=== PATIENT | female | born 1980 | race American Indian/Alaskan Native ===

== ENCOUNTER 2017-06-17 12:32 | Emergency (ER) | payer SELFPAY ==
[2017-06-17 13:32] LABS: Basophils % (Auto) 1.1 % (0.0-1.8); Hematocrit 35.9 % (30.3-42.9); Hemoglobin 11.5 gm/dl (10.1-14.3); Mean Corpuscular HGB Conc 32 % (30-34); Mean Corpuscular Volume 80 fl (79-97); Platelet Count 263 K/mm3 (140-440); Red Blood Count 4.51 M/mm3 (3.65-5.03); Red Cell Distribution Width 14.9 % (13.2-15.2); White Blood Count 5.5 K/mm3 (4.5-11.0)
[2017-06-17 13:35] LABS: Mean Corpuscular Hemoglobin 26 pg (28-32)
--- NOTE | 2017-06-17 13:38 | Emergency Department Report ---
Chief Complaint: Abdominal Pain Stated Complaint: STOMACH AND SIDE PAIN Time Seen by Provider: 06/17/17 13:36 - HPI History of Present Illness: Patient here complaining of abdominal pain to her upper quadrant especially to epigastric area and she says she has nausea and vomited times once last night. She doesn't have a primary care physician and she says she has a history of gallstones and they have told her before that she might have to have surgery to remove her gallbladder. She said her pain is 10 out of 10 and it feels like her stomach is full and pressure. Denies any diarrhea. Denies any urinary burning frequency or urgency. Patient denies any fever or chills. Pain is located to her upper quadrants. - ROS Review of Systems: All systems are negative unless stated in HPI above - Exam Vital Signs: Vital Signs 06/17/17 12:45 Temperature 98.9 F Pulse Rate 69 Respiratory 18 Rate Blood Pressure 147/94 O2 Sat by Pulse 100 Oximetry Physical Exam: Gen.: This is a 36-year-old female well-nourished well-developed in no acute distress. Abdomen: Tender to palpate to upper quadrants of abdomen, no guarding or rebound. Normal bowel sounds. No CVA tenderness. MSE screening note: Focused history and physical exam performed. Due to findings the following was ordered:[facility] ED Medical Decision Making - Lab Data Result diagrams: 06/17/17 12:56 06/17/17 12:56 - Medical Decision Making MDM: Patient screened by provider in triage area. Appropriate protocol initiated and patient to be seen in main ED by Dr. SALAS Disposition for MSE Condition: Stable Instructions: Abdominal Pain (ED)
[2017-06-17 13:46] LABS: Alanine Aminotransferase 13 units/L (7-56); Albumin 4.1 g/dL (3.9-5); Albumin/Globulin Ratio 1.2 %; Alkaline Phosphatase 64 units/L (35-129); Anion Gap 17 mmol/L; Blood Urea Nitrogen 7 mg/dL (7-17); Calcium 8.9 mg/dL (8.4-10.2); Carbon Dioxide 25 mmol/L (22-30); Chloride 99.8 mmol/L (98-107); Glucose 92 mg/dL (65-100); Lipase 11 units/L (13-60); Potassium 3.8 mmol/L (3.6-5.0); Sodium 138 mmol/L (137-145); Total Protein 7.4 g/dL (6.3-8.2)
[2017-06-17 13:50] LABS: Bacteria,Urine 4+ /HPF (Negative); Bilirubin,Urine NEG (Negative); Blood,Urine NEG (Negative); Ketones,Urine NEG (Negative); Leukocyte Esterase,Urine MOD (Negative); Mucus,Urine 3+ /HPF; Nitrite,Urine NEG (Negative); Urobilinogen,Urine < 2.0 mg/dL (<2.0)
--- NOTE | 2017-06-17 15:49 | Ultrasound Report ---
ULTRASOUND ABDOMEN COMPLETE: Technique: Transabdominal ultrasound with color Doppler interrogation. History: Upper abdominal pain. Findings: The liver parenchyma is slightly echogenic consistent with mild fatty infiltration or other nonspecific parenchymal disease. The gallbladder is packed with numerous shadowing gallstones. The CBD measures 4 mm. No pericholecystic fluid is appreciated. The visualized portions of the pancreas including the head and proximal body are within normal limits. The kidneys demonstrate no hydronephrosis or mass. Cortical thickness and echogenicity are within normal limits bilaterally. The spleen and aorta are within normal limits. No aneurysmal dilatation is noted. No ascites. The bladder is unremarkable. IMPRESSION: Cholelithiasis. No convincing findings of acute cholecystitis. Hepatic steatosis.
[2017-06-17] MEDS ORDERED: ULTRAM PO ONE (19:00)
[2017-06-17] MEDS ORDERED: TORADOL IM ONE (19:00)
[2017-06-17] MEDS ORDERED: ALUM-MAG HYDROX-SIMETH 200-200-20MG/5ML PO ONE (19:00)
[2017-06-17] MEDS ORDERED: LIDOCAINE VISCOUS 2% PO ONE (19:00)
[2017-06-17] MEDS ORDERED: ZOFRAN ODT PO ONE (19:01)
--- NOTE | 2017-06-17 19:47 | Emergency Department Report ---
ED Abdominal Pain HPI - General Chief Complaint: Abdominal Pain Stated Complaint: STOMACH AND SIDE PAIN Time Seen by Provider: 06/17/17 13:36 Source: patient Mode of arrival: Ambulatory Limitations: No Limitations - History of Present Illness Initial Comments: 36-year-old female with a past medical history of gallstones presented to the hospital complaining of ongoing abdominal pain. Patient states she has had the pain for "a long time". It appears to be worsening interfering with her sleep. Exacerbated by movement and palpation. Pain is in epigastric, right upper quadrant, left upper quadrant area and radiates to the bilateral flanks. Rated 10/10 intensity. Described as aching and like there is a "knot". Patient had one episode of vomiting last night. No reports of fever, melena, hematochezia, hematemesis, dysuria, hematuria, diarrhea, or melena. Patient has no history of gallstones and has not followed up with the surgeon due to lack of insurance coverage. - Related Data Previous Rx's Medication Instructions Recorded Last Taken Type Acetaminophen/Codeine [Tylenol #3] 1 tab PO Q6H PRN #20 tab 09/18/15 Unknown Rx Ciprofloxacin HCl [Ciprofloxacin 500 mg PO Q12H #14 tab 09/18/15 Unknown Rx TAB] Omeprazole [PriLOSEC] 20 mg PO QDAY #20 capsule. 09/18/15 Unknown Rx metroNIDAZOLE [Flagyl] 500 mg PO Q12HR #14 tab 09/18/15 Unknown Rx Famotidine [Pepcid] 20 mg PO BID #60 tablet 08/16/16 Unknown Rx HYDROcodone/APAP 5-325 [Uneeda 1 each PO Q6HR PRN #20 tablet 06/17/17 Unknown Rx 5/325] Omeprazole Magnesium [PriLOSEC Otc] 20 mg PO QDAY #30 tablet. 06/17/17 Unknown Rx Ondansetron [Zofran Odt] 4 mg PO Q8HR PRN #20 tab.rapdis 06/17/17 Unknown Rx Allergies Allergy/AdvReac Type Severity Reaction Status Date / Time No Known Allergies Allergy Unverified 09/18/15 12:32 ED Review of Systems ROS: Stated complaint: STOMACH AND SIDE PAIN Other details as noted in HPI Comment: All other systems reviewed and negative Other: Constitutional: No fevers chills or weight loss Eyes: No eye pain visual changes or discharge ENT: No ear pain or throat pain Neck: Denies pain Respiratory: Denies cough wheezing shortness of breath Cardiovascular: Denies chest pain, palpitations, syncope GI: As per HPI : Denies dysuria Musculoskeletal: Denies back pain Skin: Denies rash, lesions, erythema Neurologic: Denies headache, numbness, weakness Psychiatric: Denies suicidal ideation, hallucinations Hematological/lymphatic: Denies easy bruising, lymphadenopathy ED Past Medical Hx - Past Medical History Previous Medical History?: No - Surgical History Past Surgical History?: Yes Additional Surgical History: c sect, r. ankle, hernia - Social History Smoking Status: Never Smoker Substance Use Type: Alcohol - Medications Home Medications: Home Medications Medication Instructions Recorded Confirmed Last Taken Type Acetaminophen/Codeine [Tylenol #3] 1 tab PO Q6H PRN #20 tab 09/18/15 Unknown Rx Ciprofloxacin HCl [Ciprofloxacin 500 mg PO Q12H #14 tab 09/18/15 Unknown Rx TAB] Omeprazole [PriLOSEC] 20 mg PO QDAY #20 capsule. 09/18/15 Unknown Rx metroNIDAZOLE [Flagyl] 500 mg PO Q12HR #14 tab 09/18/15 Unknown Rx Famotidine [Pepcid] 20 mg PO BID #60 tablet 08/16/16 Unknown Rx HYDROcodone/APAP 5-325 [Uneeda 1 each PO Q6HR PRN #20 tablet 06/17/17 Unknown Rx 5/325] Omeprazole Magnesium [PriLOSEC Otc] 20 mg PO QDAY #30 tablet. 06/17/17 Unknown Rx Ondansetron [Zofran Odt] 4 mg PO Q8HR PRN #20 tab.rapdis 06/17/17 Unknown Rx ED Physical Exam - General Limitations: No Limitations - Other Other exam information: General: No limitations, patient is alert in no acute distress Head exam: Atraumatic, normocephalic Eyes exam: Normal appearance, pupils equal reactive to light, extraocular movements intact ENT: Moist mucous membrane, normal oropharynx Neck exam: Normal inspection, full range of motion, no meningismus nontender Respiratory exam: Clear to auscultation bilateral, no wheezes, rales, crackles Cardiovascular: Normal rate and rhythm, normal heart sounds Abdomen: Soft, nondistended, right upper quadrant, epigastric, left upper quadrant pain without rebound or guarding. Normal bowel sounds Extremity: Full range of motion normal inspection no deformity Back: Normal Inspection, full range of motion, no tenderness Neurologic: Alert, oriented x3, cranial nerves intact, no motor or sensory deficit Psychiatric: normal affect, normal mood Skin: Warm, dry, intact ED Course Vital Signs 06/17/17 06/17/17 12:45 18:44 Temperature 98.9 F 98.2 F Pulse Rate 69 82 Respiratory 18 16 Rate Blood Pressure 147/94 Blood Pressure 147/90 [Left] O2 Sat by Pulse 100 98 Oximetry - Reevaluation(s) Reevaluation #1: 06/17/17 19:43 Patient given tramadol, Toradol, and GI cocktail with Maalox and viscous lidocaine ED Medical Decision Making - Lab Data Result diagrams: 06/17/17 12:56 06/17/17 12:56 Lab Results 06/17/17 06/17/17 06/17/17 Range/Units 12:56 12:56 13:14 WBC 5.5 (4.5-11.0) K/mm3 RBC 4.51 (3.65-5.03) M/mm3 Hgb 11.5 (10.1-14.3) gm/dl Hct 35.9 (30.3-42.9) % MCV 80 (79-97) fl MCH 26 L (28-32) pg MCHC 32 (30-34) % RDW 14.9 (13.2-15.2) % Plt Count 263 (140-440) K/mm3 Lymph % (Auto) 46.6 H (13.4-35.0) % [place] % (Auto) 9.9 H (0.0-7.3) % Eos % (Auto) 2.0 (0.0-4.3) % Baso % (Auto) 1.1 (0.0-1.8) % Lymph # 2.6 (1.2-5.4) K/mm3 [place] # 0.5 (0.0-0.8) K/mm3 Eos # 0.1 (0.0-0.4) K/mm3 Baso # 0.1 (0.0-0.1) K/mm3 Seg Neutrophils % 40.4 (40.0-70.0) % Seg Neutrophils # 2.2 (1.8-7.7) K/mm3 Sodium 138 (137-145) mmol/L Potassium 3.8 (3.6-5.0) mmol/L Chloride 99.8 (98-107) mmol/L Carbon Dioxide 25 (22-30) mmol/L Anion Gap 17 mmol/L BUN 7 (7-17) mg/dL Creatinine 0.5 L (0.7-1.2) mg/dL Estimated GFR > 60 ml/min BUN/Creatinine Ratio 14.00 % Glucose 92 (65-100) mg/dL Calcium 8.9 (8.4-10.2) mg/dL Total Bilirubin 0.40 (0.1-1.2) mg/dL AST 15 (5-40) units/L ALT 13 (7-56) units/L Alkaline Phosphatase 64 (35-129) units/L Total Protein 7.4 (6.3-8.2) g/dL Albumin 4.1 (3.9-5) g/dL Albumin/Globulin Ratio 1.2 % Lipase 11 L (13-60) units/L Urine Color Yellow (Yellow) Urine Turbidity Clear (Clear) Urine pH 5.0 (5.0-7.0) Ur Specific [place] 1.025 (1.003-1.030) Urine Protein 100 mg/dl (Negative) mg/dL Urine Glucose (UA) Neg (Negative) mg/dL Urine Ketones Neg (Negative) mg/dL Urine Blood Neg (Negative) Urine Nitrite Neg (Negative) Ur Reducing Substances Not Reportable Urine Bilirubin Neg (Negative) Urine Ictotest Not Reportable Urine Urobilinogen < 2.0 (<2.0) mg/dL Ur Leukocyte Esterase Mod (Negative) Urine WBC (Auto) 6.0 (0.0-6.0) /HPF Urine RBC (Auto) 12.0 (0.0-6.0) /HPF U Epithel Cells (Auto) 11.0 (0-13.0) /HPF Urine Bacteria (Auto) 4+ (Negative) /HPF Urine Mucus 3+ /HPF Urine HCG, Qual (Negative) 06/17/17 Range/Units Unknown WBC (4.5-11.0) K/mm3 RBC (3.65-5.03) M/mm3 Hgb (10.1-14.3) gm/dl Hct (30.3-42.9) % MCV (79-97) fl MCH (28-32) pg MCHC (30-34) % RDW (13.2-15.2) % Plt Count (140-440) K/mm3 Lymph % (Auto) (13.4-35.0) % [place] % (Auto) (0.0-7.3) % Eos % (Auto) (0.0-4.3) % Baso % (Auto) (0.0-1.8) % Lymph # (1.2-5.4) K/mm3 [place] # (0.0-0.8) K/mm3 Eos # (0.0-0.4) K/mm3 Baso # (0.0-0.1) K/mm3 Seg Neutrophils % (40.0-70.0) % Seg Neutrophils # (1.8-7.7) K/mm3 Sodium (137-145) mmol/L Potassium (3.6-5.0) mmol/L Chloride (98-107) mmol/L Carbon Dioxide (22-30) mmol/L Anion Gap mmol/L BUN (7-17) mg/dL Creatinine (0.7-1.2) mg/dL Estimated GFR ml/min BUN/Creatinine Ratio % Glucose (65-100) mg/dL Calcium (8.4-10.2) mg/dL Total Bilirubin (0.1-1.2) mg/dL AST (5-40) units/L ALT (7-56) units/L Alkaline Phosphatase (35-129) units/L Total Protein (6.3-8.2) g/dL Albumin (3.9-5) g/dL Albumin/Globulin Ratio % Lipase (13-60) units/L Urine Color (Yellow) Urine Turbidity (Clear) Urine pH (5.0-7.0) Ur Specific [place] (1.003-1.030) Urine Protein (Negative) mg/dL Urine Glucose (UA) (Negative) mg/dL Urine Ketones (Negative) mg/dL Urine Blood (Negative) Urine Nitrite (Negative) Ur Reducing Substances Urine Bilirubin (Negative) Urine Ictotest Urine Urobilinogen (<2.0) mg/dL Ur Leukocyte Esterase (Negative) Urine WBC (Auto) (0.0-6.0) /HPF Urine RBC (Auto) (0.0-6.0) /HPF U Epithel Cells (Auto) (0-13.0) /HPF Urine Bacteria (Auto) (Negative) /HPF Urine Mucus /HPF Urine HCG, Qual Negative (Negative) - Radiology Data Radiology results: report reviewed (abdominal ultrasound: Gallstones or cholecystitis. Hepatic steatosis) - Medical Decision Making Discharge patient home with pain medication and outpatient follow-up with surgeon and GI for further evaluation and treatment of chronic upper abdominal pain With associated cholelithiasis - Differential Diagnosis PUD, gastritis, biliary colic, UTI, , renal colic Critical Care Time: No Critical care attestation.: If time is entered above; I have spent that time in minutes in the direct care of this critically ill patient, excluding procedure time. ED Disposition Clinical Impression: Cholelithiasis Disposition: TO HOME OR SELFCARE Is pt being admited?: No Does the pt Need Aspirin: No Condition: Stable Instructions: Biliary Colic (ED) Additional Instructions: Take the medication as prescribed. Return if symptoms worsen. Prescriptions: HYDROcodone/APAP 5-325 [Uneeda 5/325] 1 each PO Q6HR PRN #20 tablet PRN Reason: Pain Omeprazole Magnesium [PriLOSEC Otc] 20 mg PO QDAY #30 tablet. Ondansetron [Zofran Odt] 4 mg PO Q8HR PRN #20 tab.rapdis PRN Reason: Nausea And Vomiting Referrals: JUAN NEWSOME DO [Staff Physician] - 3-5 Days MAGDI MICHAEL MD [Staff Physician] - 3-5 Days [facility] [Provider Group] - 3-5 Days Time of Disposition: 20:08
[2017-06-17 20:26] VITALS: BP 146/93
== END 2017-06-17 20:25 | disposition home or self-care (01) ==
LOC: ED 12:32
DX: K80.20 Calculus of gallbladder without cholecystitis without obstruction (principal)
CPT/HCPCS: 36415; 76700; 80053; 81001; 81025; 83690; 85025; 96372; 99284; J1885; Q0162

== ENCOUNTER 2019-01-10 15:45 | Emergency (ER) | payer OTHER ==
[2019-01-10] MEDS ORDERED: TORADOL PO ONE (16:24)
[2019-01-10] MEDS ORDERED: BENADRYL PO ONE (16:25)
[2019-01-10] MEDS ORDERED: REGLAN PO ONE (16:25)
--- NOTE | 2019-01-10 16:25 | Emergency Department Report ---
Chief Complaint: Headache Stated Complaint: BACK OF HEAD PAIN/CHEST PAIN Time Seen by Provider: 01/10/19 16:21 - HPI History of Present Illness: Pt presents to the ED with c/o a SERRANO in the back of her head that began a month ago states she was seen by a "clinic" and placed on HTN medication was started on lisinopril/hctz on january 08, 2019 no vision changes, no numbness, or weakness took excedrin migraine last night without much relief MSE screening note: Focused history and physical exam performed. Due to findings the following was ordered: meds ED Disposition for MSE Condition: Stable
--- NOTE | 2019-01-10 21:38 | Cat Scan Report ---
PROCEDURE: CT HEAD/BRAIN WO CON TECHNIQUE: Computerized tomography of the head was performed without contrast material. CT DOSE LENGTH PRODUCT: mGycm HISTORY: headache COMPARISONS: None . FINDINGS: Skull and scalp: Normal . Paranasal sinuses: Normal . Ventricles and subarachnoid spaces: Normal . Cerebrum: No evidence of hemorrhage, acute infarction or mass . Cerebellum and brainstem: No evidence of hemorrhage, acute infarction or mass . Vasculature: Normal . Other: None . ASPECTS: 10 IMPRESSION: Normal Examination . This document is electronically signed by Adriel Maurice MD., January 10 2019 09:36:34 PM ET
[2019-01-10] MEDS ORDERED: FIORICET PO ONE (21:53)
--- NOTE | 2019-01-10 21:53 | Emergency Department Report ---
ED Headache HPI - General Chief Complaint: Headache Stated Complaint: BACK OF HEAD PAIN/CHEST PAIN Time Seen by Provider: 01/10/19 16:21 Source: patient - History of Present Illness Initial Comments: She is a 38-year-old female comes to the ER today complaining of bilateral occipital headache. She states that she has had a headache off and on for weeks. She was seen at an urgent care and they tore her blood pressure was elevated. This was on 412. They did not scan her. She does not have a primary care doctor. Her blood pressure in the ER is 118/86. She is just concerned that there something more serious with her headaches. She has no history of migraines or other benign headaches. Patient is neurologically intact, ambulatory and drove herself to the ER. There is no photophobia or nausea and vomiting. She just seems anxious about the headache. Last menstrual period 12/16/2018. Mom and dad are both alive and well Timing/Duration: 1 week Head Injury Location: occipital Recent Head Trauma: frequent headaches Allergies/Adverse Reactions: Allergies No Known Allergies Allergy (Verified 01/10/19 15:47) Home Medications: Ambulatory Orders Triamcinolone 0.1% [Kenalog 0.1% CREAM] 1 applic TP TID #1 tube 07/14/18 ED Review of Systems ROS: Stated complaint: BACK OF HEAD PAIN/CHEST PAIN Other details as noted in HPI Comment: All other systems reviewed and negative ED Past Medical Hx - Past Medical History Previous Medical History?: Yes Hx Hypertension: Yes Additional medical history: AT ONE TIME WAS TOLD SHE HAD G STONES - Surgical History Hx Cholecystectomy: Yes Additional Surgical History: c sect, r. ankle, hernia - Social History Smoking Status: Never Smoker Substance Use Type: None - Medications Home Medications: Home Medications Medication Instructions Recorded Confirmed Last Taken Type Triamcinolone 0.1% [Kenalog 0.1% 1 applic TP TID #1 tube 07/14/18 Unknown Rx CREAM] ED Physical Exam - General Limitations: No Limitations General appearance: alert - Head Head exam: Present: atraumatic, normocephalic - Eye Eye exam: Present: normal appearance, PERRL Pupils: Present: normal accommodation - ENT ENT exam: Present: mucous membranes moist - Neck Neck exam: Present: normal inspection, full ROM - Respiratory Respiratory exam: Present: normal lung sounds bilaterally - Cardiovascular Cardiovascular Exam: Present: regular rate - GI/Abdominal GI/Abdominal exam: Present: soft, normal bowel sounds - Rectal Rectal exam: Present: deferred - Extremities Exam Extremities exam: Present: normal inspection, full ROM - Back Exam Back exam: Present: normal inspection, full ROM - Neurological Exam Neurological exam: Present: alert, oriented X3, CN II-XII intact - Psychiatric Psychiatric exam: Present: normal affect, normal mood - Skin Skin exam: Present: warm, dry, normal color ED Course Vital Signs 01/10/19 01/10/19 16:29 18:36 Temperature 98.8 F Pulse Rate 86 Respiratory 16 16 Rate Blood Pressure 118/86 O2 Sat by Pulse 95 Oximetry ED Medical Decision Making - Radiology Data Radiology results: report reviewed, image reviewed - Medical Decision Making CT NEG MEDICATED FOR PAIN REASSURED NO FOCAL NEURO DEF NO FEVER NO NUCHAL RIGIDITY NO TRAUMA TO CONTINUE BP MEDS AND FOLLOW UP WITH PCP Critical care attestation.: If time is entered above; I have spent that time in minutes in the direct care of this critically ill patient, excluding procedure time. ED Disposition Clinical Impression: Headache Disposition: DC- TO HOME OR SELFCARE Is pt being admited?: No Does the pt Need Aspirin: No Condition: Stable Instructions: Acute Headache (ED) Additional Instructions: HYDRATE WELL WITH WATER FOLLOW UP PCP CT NORMAL TODAY BP NORMAL TODAY CONTINUE BP MEDS DIET AND ACTIVITY TOLERATED MOTRIN OR TYLENOL FOR PAIN Time of Disposition: 21:51
[2019-01-12 18:03] VITALS: BP 140/92
== END 2019-01-10 23:45 | disposition home or self-care (01) ==
LOC: ED 15:45
DX: R51 Headache (principal); I10 Essential (primary) hypertension
CPT/HCPCS: 70450

== ENCOUNTER 2019-01-20 12:20 | Outpatient (CLI) | payer OTHER ==
--- NOTE | 2019-01-20 16:06 | Mammography Report ---
BILATERAL DIGITAL SCREENING MAMMOGRAM WITH CAD:01/20/19 00:00:00 CLINICAL: Baseline screening. FINDINGS: The breasts are heterogeneously dense, which may obscure small masses.No mass, architectural distortion or suspicious calcifications. IMPRESSION: No mammographic evidence of malignancy. BI-RADS CATEGORY: 1 -- Negative RECOMMENDATION: Routine mammographic screening in one year. ACR BI-RADS MAMMOGRAPHIC CODES: 0 = Needs additional imaging evaluation; 1 = Negative; 2 = Benign; 3 = Probably benign; 4 = Suspicious; 5 = Malignant; 6 = Known biopsy-proven malignancy COMMENT: 1. Dense breast tissue, i.e., adenosis, fibrocystic changes, etc., may obscure an underlying neoplasm. 2. Approximately 10% of cancers are not detected with mammography. 3. A negative mammography report should not delay biopsy if a clinically suspicious mass is present.
== END 2019-01-20 12:21 | disposition home or self-care (01) ==
LOC: MAMMO 12:20
PROVIDERS: ATTEND Nurse Practitioner Family
DX: Z12.31 Encounter for screening mammogram for malignant neoplasm of breast (principal); I10 Essential (primary) hypertension; Z90.49 Acquired absence of other specified parts of digestive tract
CPT/HCPCS: 77067